=== PATIENT | female | born 1955 | race Caucasian/White ===

== ENCOUNTER 2019-04-12 16:36 | Emergency (ER) | payer BC ==
[2019-04-12 16:48] VITALS: BP 130/77
--- NOTE | 2019-04-12 16:48 | UC ---
Lower Extremity/Ankle HPI - HPI Summary HPI Summary: 63 yo female presents with LEFT foot pain since 04/08. She tells me that she thinks she has restless leg syndrome as this runs in her family. Over the last few weeks her has been saying her legs are moving a lot in her sleep. On 04/08 she was flailing and hit the top of her left foot on a wooden bedframe. Since that time has had pain and swelling to the top of her left foot that is worse with weight bearing. Has not taken anything OTC for her discomfort. - History of Current Complaint Stated Complaint: LEFT SWELLING, PAIN Time Seen by Provider: 04/12/19 16:47 Hx Obtained From: Patient Onset/Duration: Sudden Onset Severity Initially: Mild Severity Currently: Moderate Pain Intensity: 6 Pain Scale Used: 0-10 Numeric - Allergies/Home Medications Allergies/Adverse Reactions: Allergies Allergy/AdvReac Type Severity Reaction Status Date / Time codeine Allergy See Comment Verified 04/12/19 16:49 Home Medications: Home Medications Cholecalciferol TAB* [Vitamin D TAB*] 5,000 units PO DAILY 04/12/19 [History Confirmed 04/12/19] amLODIPine TAB* [Norvasc 5 mg TAB*] 5 mg PO DAILY 04/12/19 [History Confirmed ] PMH/Surg Hx/FS Hx/Imm Hx - Additional Past Medical History Additional PMH: BRCA Cardiovascular History: Hypertension - Surgical History Surgical History: Yes Surgery Procedure, Year, and Place: LUMPECTOMY LEFT 2008 - Family History Known Family History: Positive: Non-Contributory - Social History Lives: With Family Alcohol Use: Occasionally Substance Use Type: None Smoking Status (MU): Never Smoked Tobacco Review of Systems All Other Systems Reviewed And Are Negative: No Constitutional: Positive: Negative Skin: Positive: Negative Respiratory: Positive: Negative Cardiovascular: Positive: Negative Neurovascular: Positive: Negative Musculoskeletal: Positive: Other: - Left foot pain Neurological: Positive: Negative Psychological: Positive: Negative Physical Exam - Summary Physical Exam Summary: GENERAL: NAD. WDWN. No pain distress. SKIN: No rashes, sores, lesions, or open wounds. CHEST: No accessory muscle use. Breathing comfortably and in no distress. CV: Pulses intact PT and DP. Cap refill <2seconds MSK: LEFT FOOT: Moderate edema about base of 1st MT with TTP here. FROM ankle and all toes. Strength 5/5. NEURO: Alert. Sensations intact and symmetric B/L LEs PSYCH: Age appropriate behavior. Triage Information Reviewed: Yes Vital Signs: Vital Signs: Temp Pulse Resp BP Pulse Ox 98.6 F 70 16 130/77 100 04/12/19 16:43 04/12/19 16:43 04/12/19 16:43 04/12/19 16:43 04/12/19 16:43 Vital Signs Reviewed: Yes Diagnostics - Radiology Foot Radiology Interpretation Completed By: Radiologist Summary of Radiographic Findings: REPORT AND IMPRESSION: #. No acute fracture or articular malalignment. #. Accessory ossicle versus old avulsion fragment inferior to the lateral malleolus and second chronic ossicle cephalad to the base of the second metatarsal. #. 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 #. Small Achilles tendon insertion and plantar fascia origin bone spurs. #. Soft tissue swelling most prominent over the dorsum of the ankle through forefoot. Lower Extremity Course/Dx - Course Course Of Treatment: XR as above. Given her recent injury and exam the "second chronic ossicle cephalad to the base of the second metatarsal" is suspicion for acute avulsion fracture. I discussed this with the pt. Will have her use a CAM boot and monitor her symptoms. If her pain and swelling do not improve within 1 week - recommend f/u with Orthopedics for further evaluation. - Differential Dx/Diagnosis Provider Diagnosis: Foot pain Discharge ED - Sign-Out/Discharge Documenting (check all that apply): Patient Departure All imaging exams completed and their final reports reviewed: Yes - Discharge Plan Condition: Stable Disposition: HOME Patient Education Materials: Metatarsalgia (DC) Referrals: Judith Tamez MD [Primary Care Provider] - Chong Bro MD [Medical Doctor] - If Needed Additional Instructions: If you develop a fever, shortness of breath, chest pain, new or worsening symptoms - please call your PCP or go to the ED immediately. Your foot X-Ray today did not reveal an acute broken bone (fracture), but your exam is suspicious for a broken bone. Please use the walking boot as needed for comfort If your symptoms have not improved within 1-2 weeks - please call Orthopedics at the number below to schedule an appointment - Billing Disposition and Condition Condition: STABLE Disposition: Home
== END 2019-04-12 17:43 | disposition home or self-care (01) ==
LOC: UCEAST 16:36
DX: M79.672 Pain in left foot (principal); R29.898 Other symptoms and signs involving the musculoskeletal system; M77.52 Other enthesopathy of left foot and ankle; M19.072 Primary osteoarthritis, left ankle and foot; M25.475 Effusion, left foot; I10 Essential (primary) hypertension; Z79.899 Other long term (current) drug therapy; Z88.5 Allergy status to narcotic agent
CPT/HCPCS: 99212; G0463

== ENCOUNTER 2020-06-07 08:15 | Inpatient (IN) ==
[2020-06-07 08:45] LABS: Hematocrit 32 % (35-47); Hemoglobin 10.5 g/dL (12.0-16.0); Mean Corpuscular HGB Conc 33 g/dL (31-36); Mean Corpuscular Hemoglobin 29 pg (27-31); Mean Corpuscular Volume 88 fL (80-97); Mean Platelet Volume 7.1 fL (7.4-10.4); Platelet Count 154 10^3/uL (150-450); Red Blood Count 3.61 10^6 /uL (3.70-4.87); Red Cell Distribution Width 18 % (10-15); White Blood Count 1.9 10^3/uL (3.5-10.8)
[2020-06-07 08:47] LABS: ABS Lymphocytes 0.4 10^3/ul (1.0-4.8); ABS Monocytes 0.5 10^3/ul (0-0.8); Eosinophil % 0.3 %; Lymphocyte % 21.4 %; Nucleated Red Blood Cells % 0.3
[2020-06-07 08:57] LABS: Albumin 2.6 g/dL (3.2-5.2); Albumin/Globulin Ratio 1.1 (1-3); BUN/Creatinine Ratio 47.4 (8-20); Calcium 8.2 mg/dL (8.6-10.3); EGFR African American 36.5 (>60); EGFR Non-African American 30.2 (>60); Globulin 2.4 g/dL (2-4); Magnesium 2.1 mg/dL (1.9-2.7); Potassium 4.7 mmol/L (3.5-5.0); Total Bilirubin 0.4 mg/dL (0.2-1.0)
[2020-06-07] MEDS ORDERED: Megestrol 400 MG/10 ML SUSP PO SCH (11:00)
[2020-06-07] MEDS: NS 0.9% 1000 ml BAG 1,000 ML IV SCH (13:03)
[2020-06-07] MEDS ORDERED: Iodixanol (CONTRAST) 320 MG/ML 100 ML SDV IV ONE (13:29)
[2020-06-07] MEDS: Pantoprazole 80 mg in NS BAG 80 MG/250 ML BAG IV SCH (13:37)
[2020-06-07] MEDS: Enoxaparin 80 MG/0.8 ML SYR SUBCUT SCH (18:14)
[2020-06-08] MEDS: NS 0.9% 1000 ml BAG 1,000 ML IV SCH ×3 (00:27→21:44)
[2020-06-08] MEDS: Pantoprazole 80 mg in NS BAG 80 MG/250 ML BAG IV SCH ×4 (00:27→22:04)
[2020-06-08 05:41] LABS: ABS Lymphocytes 0.5 10^3/ul (1.0-4.8); ABS Monocytes 0.5 10^3/ul (0-0.8); ABS Neutrophils 1.5 10^3/ul (1.5-7.7); Eosinophil % 0.1 %; Hematocrit 29 % (35-47); Hemoglobin 9.4 g/dL (12.0-16.0); Lymphocyte % 19.3 %; Mean Corpuscular HGB Conc 33 g/dL (31-36); Mean Corpuscular Hemoglobin 29 pg (27-31); Mean Corpuscular Volume 89 fL (80-97); Mean Platelet Volume 7.2 fL (7.4-10.4); Nucleated Red Blood Cells % 0.1; Platelet Count 121 10^3/uL (150-450); Red Blood Count 3.22 10^6 /uL (3.70-4.87); Red Cell Distribution Width 18 % (10-15); White Blood Count 2.6 10^3/uL (3.5-10.8)
[2020-06-08 05:57] LABS: Albumin 2.3 g/dL (3.2-5.2); Albumin/Globulin Ratio 1.1 (1-3); BUN/Creatinine Ratio 47.1 (8-20); Calcium 7.7 mg/dL (8.6-10.3); EGFR African American 41.5 (>60); EGFR Non-African American 34.3 (>60); Globulin 2.1 g/dL (2-4); Potassium 4.4 mmol/L (3.5-5.0); Total Bilirubin 0.3 mg/dL (0.2-1.0); Total Protein 4.4 g/dL (6.4-8.9)
[2020-06-08] MEDS: Enoxaparin 80 MG/0.8 ML SYR SUBCUT SCH (17:43)
[2020-06-08] MEDS ORDERED: NS 0.9% 1000 ml BAG 1,000 ML IV SCH (23:27)
[2020-06-09 05:33] LABS: ABS Lymphocytes 0.5 10^3/ul (1.0-4.8); ABS Monocytes 0.5 10^3/ul (0-0.8); ABS Neutrophils 2.3 10^3/ul (1.5-7.7); Eosinophil % 0.3 %; Hematocrit 27 % (35-47); Lymphocyte % 15.6 %; Mean Corpuscular HGB Conc 33 g/dL (31-36); Mean Corpuscular Hemoglobin 30 pg (27-31); Mean Corpuscular Volume 89 fL (80-97); Mean Platelet Volume 7.1 fL (7.4-10.4); Nucleated Red Blood Cells % 0.2; Platelet Count 126 10^3/uL (150-450); Red Blood Count 3.05 10^6 /uL (3.70-4.87); Red Cell Distribution Width 18 % (10-15); White Blood Count 3.4 10^3/uL (3.5-10.8)
[2020-06-09 05:50] LABS: Albumin 2.4 g/dL (3.2-5.2); Albumin/Globulin Ratio 1.1 (1-3); BUN/Creatinine Ratio 41.8 (8-20); Calcium 7.9 mg/dL (8.6-10.3); Globulin 2.1 g/dL (2-4); Potassium 4.3 mmol/L (3.5-5.0); Total Bilirubin 0.3 mg/dL (0.2-1.0); Total Protein 4.5 g/dL (6.4-8.9)
[2020-06-09] MEDS ORDERED: Piperacillin/Tazobac ADVAN 3.375 GM in NS 0.9% 100 ml BAG 100 ML IV ONE (06:17)
[2020-06-09] MEDS ORDERED: Zosyn per Pharmacy NOTE FOLLOW UP SCH (07:00)
[2020-06-09] MEDS ORDERED: Sodium Bicarb 8.4% Vial 50 ML 50 MEQ in D5W 1000 ml BAG 1,000 ML IV SCH (07:00)
[2020-06-09] MEDS: Pantoprazole 80 mg in NS BAG 80 MG/250 ML BAG IV SCH (10:23)
[2020-06-09 13:07] VITALS: BP 105/78
[2020-06-09] MEDS: ZOSYN 3.375 GM Q8H per EXTENDED INFUSION IV SCH ×2 (14:17→21:43)
[2020-06-09] MEDS: Sodium Bicarb 8.4% Vial 50 ML 50 MEQ in D5W 1000 ml BAG 1,000 ML IV SCH (21:43)
[2020-06-10] MEDS: Sodium Bicarb 8.4% Vial 50 ML 50 MEQ in D5W 1000 ml BAG 1,000 ML IV SCH (05:37)
[2020-06-10] MEDS: ZOSYN 3.375 GM Q8H per EXTENDED INFUSION IV SCH ×3 (06:03→22:45)
[2020-06-10] MEDS: Pantoprazole VIAL 40 MG VIAL IV SCH (11:09)
[2020-06-10] MEDS ORDERED: Scopolamine PATCH Remove NOTE PATCH OFF SCH (13:00)
[2020-06-11] MEDS: ZOSYN 3.375 GM Q8H per EXTENDED INFUSION IV SCH (06:12)
[2020-06-11] MEDS: Pantoprazole VIAL 40 MG VIAL IV SCH (10:13)
[2020-06-11] MEDS: Ondansetron 4 mg VIAL 2 MG/ML 2 ml VIAL IV PRN ×2 (16:33→22:48)
[2020-06-11] MEDS: HYDROmorphone 0.5 MG/0.5 ML SYRINGE IV SLOW PU PRN (22:48)
[2020-06-12] MEDS: HYDROmorphone 0.5 MG/0.5 ML SYRINGE IV SLOW PU PRN ×2 (09:25→09:52)
[2020-06-12] MEDS: Ondansetron 4 mg VIAL 2 MG/ML 2 ml VIAL IV PRN (09:26)
[2020-06-12] MEDS: Pantoprazole VIAL 40 MG VIAL IV SCH (09:27)
[2020-06-12] MEDS ORDERED: Sodium Phosphate ADULT ENEMA 133 ML BTL PR ONE (10:30)
[2020-06-12] MEDS: NS 0.9% 1000 ml BAG 1,000 ML IV SCH ×2 (11:36→13:37)
[2020-06-13] MEDS: HYDROmorphone 0.5 MG/0.5 ML SYRINGE IV SLOW PU PRN (03:24)
[2020-06-13] MEDS: Pantoprazole VIAL 40 MG VIAL IV SCH (07:35)
[2020-06-13] MEDS ORDERED: Morphine ORAL CONCENTRATE 5 MG/0.25 ML ORAL.SYRIN PO PRN (09:25)
== END 2020-06-14 08:35 | disposition hospice, home (50) ==
LOC: CHOA 08:15 → MEDTELE 10:29
PROVIDERS: ADMIT Internal Medicine Hematology & Oncology; ATTEND Internal Medicine Hematology & Oncology